=== PATIENT | female | born 1990 | race Two or more races ===

== ENCOUNTER 2017-02-06 18:05 | Inpatient (IN) | payer MEDICAID, OTHER ==
[~2017-02-06] VITALS: Ht 124.5 cm; Wt 70.0 kg
[2017-02-06 19:22] LABS: Albumin 2.3 g/dL (3.4-5.0); BUN/Creatinine Ratio 26.9; Bilirubin, Total 0.7 mg/dL (0.2-1.0); Calcium 7.9 mg/dL (8.5-10.1); Potassium 3.1 mmol/L (3.5-5.1); Total Protein 7.4 g/dL (6.4-8.2)
[2017-02-06 19:35] LABS: Basophils # (auto) 0 uL; Basophils % (auto) 0.2 % (0.0-2.0); Eosinophils # (auto) 0 uL; Eosinophils % (auto) 0.3 % (0.0-7.0); Hematocrit 22.5 % (36.0-46.0); Hemoglobin 7.8 g/dL (12.2-16.2); Lymphocytes # (auto) 0.7 uL; Lymphocytes % (auto) 7.6 % (10.0-50.0); Mean Corpuscular Hemoglobin 30.6 pg (28.0-32.0); Mean Corpuscular Hgb Conc. 34.5 g/dL (32.0-36.0); Mean Corpuscular Volume 88.7 fL (80.0-100.0); Mean Platelet Volume 7.7 fL (6.9-10.8); Monocytes # (auto) 0.1 uL; Monocytes % (auto) 1.2 % (0.0-12.0); Neutrophils # (auto) 8.2 uL; Neutrophils % (auto) 90.7 % (37.0-80.0); Nucleated Red Blood Cells % 0.2 %; Platelet Count (auto) 193 10^3/uL (140-450); White Blood Cell 9.1 10^3/uL (4.4-10.8)
[2017-02-06] MEDS ORDERED: LORazepam 2MG/ML-1ML VIAL IV ONE (19:45)
[2017-02-06 19:54] LABS: Red Cell Distribution Width 20.3 % (11.8-14.3)
[2017-02-06 21:54] LABS: Anisocytosis Moderate; Burr Cells MODERATE; Ovalocytes FEW; Platelet Estimate Adequate
[2017-02-06 22:50] LABS: Urine Bilirubin Negative (Negative); Urine Blood 2+ /uL (Negative); Urine Color Brown (Yellow); Urine Glucose Normal (Normal); Urine Ketone Negative (Negative); Urine Mucus FEW (None Seen); Urine Nitrite Negative (Negative); Urine RBC 1 /hpf (0 - 4); Urine Squamous Epithelial Cell FEW /hpf (<5); Urine Urobilinogen Normal (Negative)
[2017-02-06] MEDS ORDERED: cefTRIAXone 1GM/50ML D5W 50 ML IV ONE (23:00)
[2017-02-07] MEDS ORDERED: SODIUM CHLORIDE 0.9% 1,000 ML IV ONE ×2 (01:00→01:15)
[2017-02-07] MEDS ORDERED: SODIUM CHLORIDE 0.9% 1,000 ML IV SCH ×2 (02:19→05:58)
[2017-02-07] MEDS ORDERED: ACETAMINOPHEN 500 MG TAB PO PRN (02:30)
[2017-02-07] MEDS ORDERED: ZOLPIDEM TARTRATE 5 MG TAB PO PRN (02:30)
[2017-02-07] MEDS ORDERED: LACTULOSE 20Gm/30ML SOLN PO PRN ×2 (02:30→03:30)
[2017-02-07 02:53] LABS: Basophils # (auto) 0 uL; Basophils % (auto) 0.3 % (0.0-2.0); Eosinophils # (auto) 0.1 uL; Lymphocytes # (auto) 0.2 uL; Lymphocytes % (auto) 2.9 % (10.0-50.0); Mean Corpuscular Hemoglobin 29.9 pg (28.0-32.0); Mean Corpuscular Hgb Conc. 33.8 g/dL (32.0-36.0); Mean Corpuscular Volume 88.5 fL (80.0-100.0); Mean Platelet Volume 7.2 fL (6.9-10.8); Monocytes # (auto) 0.2 uL; Monocytes % (auto) 2.3 % (0.0-12.0); Neutrophils # (auto) 7.9 uL; Neutrophils % (auto) 93.5 % (37.0-80.0); Nucleated Red Blood Cells % 0.1 %; Platelet Count (auto) 178 10^3/uL (140-450); White Blood Cell 8.4 10^3/uL (4.4-10.8)
[2017-02-07 03:05] LABS: Red Cell Distribution Width 20.6 % (11.8-14.3)
[2017-02-07 03:08] LABS: Hemoglobin 6.7 g/dL (12.2-16.2)
[2017-02-07 03:35] LABS: BUN/Creatinine Ratio 25.6; Calcium 7.2 mg/dL (8.5-10.1); Potassium 3.2 mmol/L (3.5-5.1)
[2017-02-07 03:38] LABS: Bilirubin, Total 0.4 mg/dL (0.2-1.0); Total Protein 6.8 g/dL (6.4-8.2)
[2017-02-07] MEDS ORDERED: PIPERACILLIN-TAZOB 3.375GM 100 ML IV ONE (03:45)
[2017-02-07] MEDS ORDERED: POTASSIUM CHL 20MEQ/100ML 100 ML IV SCH (03:45)
[2017-02-07 03:57] LABS: Amylase 195 U/L (25-115)
[2017-02-07 04:02] LABS: Anisocytosis Slight; Burr Cells FEW; Platelet Estimate Adequate
[2017-02-07 04:03] LABS: Ovalocytes FEW; Tear Drop Cells FEW
[2017-02-07 05:00] VITALS: BP 127/70
[2017-02-07] MEDS ORDERED: ONDA4TAB5 PO (05:12)
[2017-02-07] MEDS ORDERED: METR500T14 PO (05:12)
[2017-02-07] MEDS ORDERED: FER300LQ PO (05:12)
[2017-02-07] MEDS ORDERED: HYDR-4663 PO (05:12)
[2017-02-07] MEDS ORDERED: CIPR500T20 PO (05:12)
[2017-02-07] MEDS ORDERED: FERR325T PO (05:13)
[2017-02-07] MEDS ORDERED: CLINDAMYCIN 600MG IV 50 ML IV SCH (06:00)
[2017-02-07] MEDS: PIPERACILLIN-TAZOB 3.375GM 100 ML IV SCH ×3 (06:51→17:51)
[2017-02-07] MEDS ORDERED: LORazepam 2MG/ML-1ML VIAL IV PRN (09:00)
[2017-02-07] MEDS ORDERED: cefTRIAXone 1GM/50ML D5W 50 ML IV SCH (09:00)
[2017-02-07 09:02] VITALS: BP 135/106
[2017-02-07] MEDS: LORazepam 0.5 MG TAB PO PRN ×2 (10:16→17:58)
[2017-02-07] MEDS: D5W/SOD CHL 0.45%/KCL 40MEQ 1,000 ML IV SCH ×2 (11:15→22:49)
[2017-02-07 12:06] LABS: Magnesium 2.2 mg/dL (1.6-2.6); Phosphorus 5.5 mg/dL (2.5-4.90)
[2017-02-07 12:14] LABS: B-Type Natriuretic Peptide 308.36 pg/mL (0-100)
[2017-02-07 12:15] LABS: Temperature: 23.5 C (20.0-25.0)
[2017-02-07 12:30] VITALS: BP 118/63
[2017-02-07] MEDS ORDERED: FLORASTOR (S. BOULARDII) 250 MG CAP PO ONE (13:45)
[2017-02-07] MEDS: metroNIDAZOLE 500 MG TAB PO SCH ×2 (16:03→22:47)
[2017-02-07] MEDS: ALBUMIN 25% 100 ML IV SCH ×2 (16:03→22:49)
[2017-02-07 17:23] VITALS: BP 118/50
[2017-02-07] MEDS: FERROUS SULFATE 325 MG TAB PO SCH (17:52)
[2017-02-07 20:00] VITALS: BP 104/59
[2017-02-07] MEDS: MORPHINE SULF INJ 2 MG/ML SYRINGE 1ML IV PRN (20:06)
[2017-02-07 21:41] VITALS: BP 104/59
[2017-02-07] MEDS: HYDROcodone-ACET 5/325MG TAB PO PRN (23:08)
[2017-02-08] VITALS (15 sets, daily range): BP systolic 92–130; BP diastolic 50–75
[2017-02-08] MEDS: PIPERACILLIN-TAZOB 3.375GM 100 ML IV SCH ×4 (01:02→18:27)
[2017-02-08] MEDS: LORazepam 0.5 MG TAB PO PRN (03:27)
[2017-02-08] MEDS: ALBUMIN 25% 100 ML IV SCH ×3 (06:59→21:45)
[2017-02-08] MEDS: metroNIDAZOLE 500 MG TAB PO SCH ×3 (06:59→21:45)
[2017-02-08 07:00] LABS: Basophils # (auto) 0 uL; Basophils % (auto) 0.1 % (0.0-2.0); Eosinophils # (auto) 0.1 uL; Eosinophils % (auto) 1.9 % (0.0-7.0); Hematocrit 22.2 % (36.0-46.0); Hemoglobin 7.6 g/dL (12.2-16.2); Lymphocytes % (auto) 17.3 % (10.0-50.0); Mean Corpuscular Hgb Conc. 34.1 g/dL (32.0-36.0); Mean Corpuscular Volume 88.1 fL (80.0-100.0); Mean Platelet Volume 7.2 fL (6.9-10.8); Monocytes # (auto) 0.2 uL; Monocytes % (auto) 4.3 % (0.0-12.0); Neutrophils # (auto) 4.4 uL; Neutrophils % (auto) 76.4 % (37.0-80.0); Nucleated Red Blood Cells % 0.3 %; Platelet Count (auto) 141 10^3/uL (140-450); Red Cell Distribution Width 18.2 % (11.8-14.3); White Blood Cell 5.7 10^3/uL (4.4-10.8)
[2017-02-08] MEDS: ALBUTEROL SULF 2.5 MG/0.5ML(0.5%) NEB SOLN NEB SCH ×3 (07:09→18:38)
[2017-02-08] MEDS: D5W/SOD CHL 0.45%/KCL 40MEQ 1,000 ML IV SCH ×2 (07:15→17:15)
[2017-02-08 07:21] LABS: BUN/Creatinine Ratio 21.5; Calcium 7.2 mg/dL (8.5-10.1); Potassium 4.2 mmol/L (3.5-5.1)
[2017-02-08] MEDS: FERROUS SULFATE 325 MG TAB PO SCH ×2 (08:00→18:27)
[2017-02-08] MEDS: FLORASTOR (S. BOULARDII) 250 MG CAP PO SCH (10:55)
[2017-02-08] MEDS: HYDROcodone-ACET 5/325MG TAB PO PRN (11:05)
[2017-02-08 14:46] LABS: Anisocytosis Slight; Burr Cells FEW; Ovalocytes FEW; Platelet Estimate Adequate
[2017-02-08] MEDS: MORPHINE SULF INJ 2 MG/ML SYRINGE 1ML IV PRN (22:02)
[2017-02-09] VITALS (14 sets, daily range): BP systolic 108–141; BP diastolic 57–91
[2017-02-09] MEDS: PIPERACILLIN-TAZOB 3.375GM 100 ML IV SCH ×4 (00:04→18:30)
[2017-02-09] MEDS: MORPHINE SULF INJ 2 MG/ML SYRINGE 1ML IV PRN ×4 (04:46→23:23)
[2017-02-09] MEDS: ONDANSETRON HCL 4 MG/2 ML VIAL IV PRN ×4 (04:55→21:22)
[2017-02-09] MEDS: ALBUMIN 25% 100 ML IV SCH (05:44)
[2017-02-09 05:47] LABS: Hematocrit 20.3 % (36.0-46.0)
[2017-02-09] MEDS: ALBUTEROL SULF 2.5 MG/0.5ML(0.5%) NEB SOLN NEB SCH ×4 (05:52→18:07)
[2017-02-09 06:16] LABS: Potassium 4.8 mmol/L (3.5-5.1)
[2017-02-09] MEDS: metroNIDAZOLE 500 MG TAB PO SCH ×3 (06:17→22:53)
[2017-02-09] MEDS: D5W/SOD CHL 0.45%/KCL 40MEQ 1,000 ML IV SCH (06:19)
[2017-02-09 06:23] LABS: BUN/Creatinine Ratio 17.5; Calcium 7.7 mg/dL (8.5-10.1)
[2017-02-09] MEDS: FERROUS SULFATE 325 MG TAB PO SCH ×2 (08:00→18:30)
[2017-02-09] MEDS: FLORASTOR (S. BOULARDII) 250 MG CAP PO SCH (10:29)
[2017-02-09] MEDS ORDERED: GOLYTELY 4L KIT PO ONE (12:00)
[2017-02-09 12:07] LABS: Sjogren's Anti-SS-A Antibody >8.0 AI (0.0-0.9)
[2017-02-09] MEDS ORDERED: SODIUM BICARBONATE 50ML VIAL 50 ML in SOD CHL 0.45% 1,000 ML IV SCH (12:45)
[2017-02-09] MEDS ORDERED: ASCORBIC ACID 500 MG TAB PO ONE (13:45)
[2017-02-09] MEDS ORDERED: MULTIPLE VITAMINS W/ MINERALS TAB PO ONE (13:45)
[2017-02-09] MEDS: ASCORBIC ACID 500 MG TAB PO SCH (22:52)
[2017-02-10] VITALS (69 sets, daily range): BP systolic 94–138; BP diastolic 45–85
[2017-02-10] MEDS: PIPERACILLIN-TAZOB 3.375GM 100 ML IV SCH ×4 (00:38→18:41)
[2017-02-10] MEDS: metroNIDAZOLE 500 MG TAB PO SCH (05:41)
[2017-02-10] MEDS: ALBUTEROL SULF 2.5 MG/0.5ML(0.5%) NEB SOLN NEB SCH ×4 (06:17→18:13)
[2017-02-10 06:28] LABS: Hematocrit 33.5 % (36.0-46.0); Hemoglobin 10.9 g/dL (12.2-16.2); Mean Corpuscular Hemoglobin 29.6 pg (28.0-32.0); Mean Corpuscular Hgb Conc. 32.6 g/dL (32.0-36.0); Mean Corpuscular Volume 90.9 fL (80.0-100.0); Mean Platelet Volume 7.1 fL (6.9-10.8); Platelet Count (auto) 154 10^3/uL (140-450); Red Cell Distribution Width 19.2 % (11.8-14.3)
[2017-02-10 06:32] LABS: Metamyelocytes % 0; Myelocytes % 0; Promyelocytes % 0; Reactive Lymphocytes 0
[2017-02-10 06:49] LABS: BUN/Creatinine Ratio 16.1; Calcium 7.4 mg/dL (8.5-10.1); Potassium 5.3 mmol/L (3.5-5.1)
[2017-02-10] MEDS ORDERED: ETOMIDATE (2MG/ML) 20ML VIAL IV ONE (07:05)
[2017-02-10] MEDS ORDERED: MIDAZOLAM HCL 1MG/1ML-2 ML VIAL ONE (07:05)
[2017-02-10] MEDS ORDERED: ROCURONIUM 10MG/ML 10ML VIAL IV ONE (07:05)
[2017-02-10] MEDS ORDERED: SUCCINYLCHOLINE CHLORIDE 20 MG/ML 10ML VIAL IV ONE (07:06)
[2017-02-10] MEDS ORDERED: MIDAZOLAM DRIP 50 mg/50mL 50 ML IV ONE (07:40)
[2017-02-10 08:00] LABS: Anisocytosis Slight; Burr Cells FEW; Ovalocytes FEW; Platelet Estimate Adequate
[2017-02-10] MEDS: FERROUS SULFATE 325 MG TAB PO SCH ×2 (08:00→18:41)
[2017-02-10] MEDS ORDERED: VANCOMYCIN PER PHARMACY 0 MG IV SCH (08:45)
[2017-02-10] MEDS ORDERED: metroNIDAZOLE 500MG/100ML 100 ML IV ONE (08:45)
[2017-02-10] MEDS: VANCOMYCIN HCL 125MG/5ML ORAL SOL PO SCH ×3 (08:45→21:03)
[2017-02-10 08:48] LABS: Base Excess -13.3 mmol/L (-2.0-2.0); Blood 02Sat 98.6 % (96-100); Blood COHb 1.5 % (0.5-1.5); Blood MetHb 0.9 % (0.0-1.5); HCO3 17.2 mmol/L (22-26.0); HHb 1.4 % (0.0-5.0); MODE VENT - A/C; O2Hb 96.2 % (94.0-97.0); PIP 26; PO2 213.7 mmHg (80.0-100.0); PO2(T) 213.7 mmHg (80.0-100.0); Sample Type Arterial; Spont Vt 256; pH 7.054 (7.350-7.450)
[2017-02-10] MEDS: MIDAZOLAM DRIP 50 mg/50mL 50 ML IV SCH (09:10)
[2017-02-10] MEDS: SODIUM CHLORIDE 0.9% 1,000 ML IV SCH ×2 (09:24→17:00)
[2017-02-10] MEDS: PANTOPRAZOLE 40 MG/10 ML VIAL IV SCH ×2 (09:24→21:31)
[2017-02-10] MEDS: ASCORBIC ACID 500 MG TAB PO SCH ×2 (09:25→21:31)
[2017-02-10] MEDS: FLORASTOR (S. BOULARDII) 250 MG CAP PO SCH (09:25)
[2017-02-10] MEDS: MULTIPLE VITAMINS W/ MINERALS TAB PO SCH (09:25)
[2017-02-10 10:23] LABS: INR 1.59 (0.9-1.15); Partial Thromboplastin Time 46.2 sec (22.64-33.71); Prothrombin Time 17.4 sec (9.37-12.3)
[2017-02-10] MEDS: VANCOMYCIN 1GM/250ML D5W 250 ML IV SCH (10:25)
[2017-02-10] MEDS ORDERED: BUMETANIDE (0.25MG/ML) 4 ML VIAL IV ONE (11:45)
[2017-02-10] MEDS ORDERED: VANCOMYCIN HCL 125MG/5ML ORAL SOL PO SCH (12:00)
[2017-02-10] MEDS ORDERED: BUMETANIDE (0.25 MG/ML) INJ 10ML IV ONE (12:00)
[2017-02-10 12:15] LABS: Urine Bilirubin Negative (Negative); Urine Blood 3+ /uL (Negative); Urine Color Brown (Yellow); Urine Glucose Normal (Normal); Urine Ketone Negative (Negative); Urine Nitrite Negative (Negative); Urine RBC 10 /hpf (0 - 4); Urine Squamous Epithelial Cell FEW /hpf (<5); Urine Urobilinogen Normal (Negative)
[2017-02-10 15:24] LABS: Base Excess -10.2 mmol/L (-2.0-2.0); Blood COHb 1.2 % (0.5-1.5); Blood MetHb 0.7 % (0.0-1.5); HCO3 17.7 mmol/L (22-26.0); HHb 2.9 % (0.0-5.0); MODE VENT - A/C; O2Hb 95.2 % (94.0-97.0); PCO2 47.5 mmHg (35.0-45.0); PCO2(T) 47.5 mmHg (35.0-45.0); PIP 26; PO2 101.3 mmHg (80.0-100.0); PO2(T) 101.3 mmHg (80.0-100.0); Sample Type Arterial; Spont Vt 358
[2017-02-10] MEDS ORDERED: LIDOCAINE 1% HCL (LOCAL ANESTH.) INJ 20ML MDV IV ONE (16:45)
[2017-02-10] MEDS ORDERED: LIDOCAINE HCL 1 % PF INJ 2ML AMP IJ ONE (16:45)
[2017-02-10] MEDS: metroNIDAZOLE 500MG/100ML 100 ML IV SCH ×2 (17:15→21:31)
[2017-02-10] MEDS: diphenhdrAMINE HCL 50 MG/1 ML VL IV PRN (18:52)
[2017-02-11] VITALS (101 sets, daily range): BP systolic 93–135; BP diastolic 43–109
[2017-02-11] MEDS: PIPERACILLIN-TAZOB 3.375GM 100 ML IV SCH ×4 (00:14→17:34)
[2017-02-11] MEDS ORDERED: SODIUM CHLORIDE 0.9% 500 ML IV ONE (00:30)
[2017-02-11] MEDS: ALBUTEROL SULF 2.5 MG/0.5ML(0.5%) NEB SOLN NEB SCH ×4 (00:46→19:17)
[2017-02-11] MEDS: SODIUM CHLORIDE 0.9% 1,000 ML IV SCH ×2 (01:00→09:24)
[2017-02-11 01:06] LABS: Hematocrit 32.6 % (36.0-46.0); Mean Corpuscular Hemoglobin 30.1 pg (28.0-32.0); Mean Corpuscular Hgb Conc. 33.7 g/dL (32.0-36.0); Mean Corpuscular Volume 89.4 fL (80.0-100.0); Mean Platelet Volume 6.8 fL (6.9-10.8); Platelet Count (auto) 130 10^3/uL (140-450); Red Cell Distribution Width 19.6 % (11.8-14.3); White Blood Cell 12.2 10^3/uL (4.4-10.8)
[2017-02-11 01:23] LABS: Myelocytes % 0; Promyelocytes % 0; Reactive Lymphocytes 0
[2017-02-11 01:25] LABS: Albumin 2.5 g/dL (3.4-5.0); BUN/Creatinine Ratio 16.3; Magnesium 1.9 mg/dL (1.6-2.6); Potassium 3.8 mmol/L (3.5-5.1)
[2017-02-11 01:27] LABS: Bilirubin, Total 1.1 mg/dL (0.2-1.0); Total Protein 5.9 g/dL (6.4-8.2)
[2017-02-11] MEDS: MIDAZOLAM DRIP 50 mg/50mL 50 ML IV SCH (02:08)
[2017-02-11 02:34] LABS: Anisocytosis Slight; Metamyelocytes % 1; Ovalocytes FEW; Platelet Estimate Decreased; Polychromasia Slight
[2017-02-11] MEDS: VANCOMYCIN HCL 125MG/5ML ORAL SOL PO SCH ×4 (03:09→20:43)
[2017-02-11] MEDS: diphenhdrAMINE HCL 50 MG/1 ML VL IV PRN ×2 (03:36→13:33)
[2017-02-11] MEDS ORDERED: methylPREDNISolone SOD SUCC 125 MG/2 ML VL IV ONE (05:30)
[2017-02-11] MEDS ORDERED: methylPREDNISolone SOD SUCC 125 MG/2 ML VL ONE (05:40)
[2017-02-11] MEDS: metroNIDAZOLE 500MG/100ML 100 ML IV SCH ×3 (06:03→22:00)
[2017-02-11 07:23] LABS: Body Fluid Polymorphonuclear 4 %
[2017-02-11] MEDS ORDERED: EPINEPHrine HCL 1 MG/10 ML SYRG ONE (07:48)
[2017-02-11] MEDS ORDERED: FLUMAZENIL 0.1 MG/ML INJ 10ML MDV IV ONE (07:48)
[2017-02-11] MEDS ORDERED: SODIUM CHLORIDE LOCK 0 ML ONE (07:48)
[2017-02-11] MEDS ORDERED: NALOXONE HCL 0.4 MG/ML VIAL ONE (07:48)
[2017-02-11] MEDS ORDERED: fentaNYL CITRATE 100 MCG/2 ML VL ONE (07:49)
[2017-02-11] MEDS ORDERED: diphenhdrAMINE HCL 50 MG/1 ML VL ONE (07:49)
[2017-02-11] MEDS ORDERED: MIDAZOLAM HCL 5 MG/ML-1ML VIAL ONE (07:49)
[2017-02-11] MEDS: FERROUS SULFATE 325 MG TAB PO SCH ×2 (09:23→17:34)
[2017-02-11] MEDS: PANTOPRAZOLE 40 MG/10 ML VIAL IV SCH ×2 (09:23→22:00)
[2017-02-11] MEDS: FLORASTOR (S. BOULARDII) 250 MG CAP PO SCH (09:23)
[2017-02-11] MEDS: MULTIPLE VITAMINS W/ MINERALS TAB PO SCH (09:23)
[2017-02-11] MEDS: ASCORBIC ACID 500 MG TAB PO SCH ×2 (09:23→22:00)
[2017-02-11] MEDS: BUMETANIDE (0.25 MG/ML) INJ 10ML IV SCH (09:24)
[2017-02-11] MEDS: VANCOMYCIN 1GM/250ML D5W 250 ML IV SCH (09:24)
[2017-02-11 10:03] LABS: Allen Test Yes; Base Excess -15.2 mmol/L (-2.0-2.0); Blood 02Sat 94.1 % (96-100); Blood COHb 1.7 % (0.5-1.5); Blood MetHb 0.7 % (0.0-1.5); HCO3 12.9 mmol/L (22-26.0); HHb 5.8 % (0.0-5.0); MODE VENT - A/C; O2Hb 91.8 % (94.0-97.0); PCO2 38.2 mmHg (35.0-45.0); PCO2(T) 38.2 mmHg (35.0-45.0); Sample Type Arterial; pH 7.146 (7.350-7.450)
[2017-02-11] MEDS ORDERED: SODIUM BICARBONATE 50ML VIAL 50 ML in SOD CHL 0.45% 1,000 ML IV SCH (11:15)
[2017-02-11 14:01] LABS: Allen Test Yes; Base Excess -11.2 mmol/L (-2.0-2.0); Blood 02Sat 92.6 % (96-100); Blood MetHb 0.5 % (0.0-1.5); HCO3 16.2 mmol/L (22-26.0); HHb 7.2 % (0.0-5.0); MODE VENT - A/C; O2Hb 90.3 % (94.0-97.0); PCO2 41.7 mmHg (35.0-45.0); PCO2(T) 41.7 mmHg (35.0-45.0); PO2 68.5 mmHg (80.0-100.0); PO2(T) 68.5 mmHg (80.0-100.0); Sample Type Arterial; pH 7.206 (7.350-7.450)
[2017-02-12] VITALS (65 sets, daily range): BP systolic 108–168; BP diastolic 61–98
[2017-02-12] MEDS: PIPERACILLIN-TAZOB 3.375GM 100 ML IV SCH ×4 (00:23→17:48)
[2017-02-12] MEDS: ALBUTEROL SULF 2.5 MG/0.5ML(0.5%) NEB SOLN NEB SCH ×4 (00:47→19:06)
[2017-02-12] MEDS: VANCOMYCIN HCL 125MG/5ML ORAL SOL PO SCH ×4 (02:45→21:37)
[2017-02-12 04:42] LABS: Hematocrit 28.5 % (36.0-46.0); Hemoglobin 9.8 g/dL (12.2-16.2); Mean Corpuscular Hemoglobin 30.5 pg (28.0-32.0); Mean Corpuscular Hgb Conc. 34.5 g/dL (32.0-36.0); Mean Corpuscular Volume 88.3 fL (80.0-100.0); Mean Platelet Volume 7.3 fL (6.9-10.8); Platelet Count (auto) 116 10^3/uL (140-450); Red Cell Distribution Width 19.8 % (11.8-14.3); White Blood Cell 10.4 10^3/uL (4.4-10.8)
[2017-02-12 04:53] LABS: INR 1.62 (0.9-1.15); Prothrombin Time 17.7 sec (9.37-12.3)
[2017-02-12 05:01] LABS: Albumin 2.5 g/dL (3.4-5.0); BUN/Creatinine Ratio 15.1; Magnesium 1.9 mg/dL (1.6-2.6); Potassium 3.9 mmol/L (3.5-5.1)
[2017-02-12 05:04] LABS: Bilirubin, Total 0.8 mg/dL (0.2-1.0); Total Protein 6.2 g/dL (6.4-8.2)
[2017-02-12 05:33] LABS: Metamyelocytes % 0; Myelocytes % 0; Promyelocytes % 0; Reactive Lymphocytes 0
[2017-02-12] MEDS: metroNIDAZOLE 500MG/100ML 100 ML IV SCH ×3 (06:13→21:37)
[2017-02-12] MEDS: FERROUS SULFATE 325 MG TAB PO SCH ×2 (08:00→17:16)
[2017-02-12 08:07] LABS: Allen Test Yes; Base Excess -10.2 mmol/L (-2.0-2.0); Blood 02Sat 94.2 % (96-100); Blood MetHb 0.5 % (0.0-1.5); HCO3 16.2 mmol/L (22-26.0); HHb 5.7 % (0.0-5.0); MODE VENT - A/C; O2Hb 92.8 % (94.0-97.0); PCO2 37.9 mmHg (35.0-45.0); PCO2(T) 37.9 mmHg (35.0-45.0); Sample Type Arterial; pH 7.249 (7.350-7.450)
[2017-02-12 08:29] LABS: Anisocytosis Slight; Burr Cells FEW; Ovalocytes FEW; Platelet Estimate Decreased
[2017-02-12] MEDS: FLORASTOR (S. BOULARDII) 250 MG CAP PO SCH (10:13)
[2017-02-12] MEDS: MULTIPLE VITAMINS W/ MINERALS TAB PO SCH (10:13)
[2017-02-12] MEDS: ASCORBIC ACID 500 MG TAB PO SCH ×2 (10:14→21:37)
[2017-02-12] MEDS: BUMETANIDE (0.25 MG/ML) INJ 10ML IV SCH (10:14)
[2017-02-12] MEDS: PANTOPRAZOLE 40 MG/10 ML VIAL IV SCH ×2 (10:14→21:37)
[2017-02-12] MEDS: diphenhdrAMINE HCL 50 MG/1 ML VL IV PRN (10:15)
[2017-02-12] MEDS: SODIUM BICARBONATE 50ML VIAL 50 ML in SOD CHL 0.45% 1,000 ML IV SCH ×2 (12:05→21:37)
[2017-02-12] MEDS: MIDAZOLAM DRIP 50 mg/50mL 50 ML IV SCH (13:50)
[2017-02-13] VITALS (99 sets, daily range): BP systolic 130–152; BP diastolic 64–101
[2017-02-13] MEDS: ALBUTEROL SULF 2.5 MG/0.5ML(0.5%) NEB SOLN NEB SCH ×4 (00:27→18:29)
[2017-02-13] MEDS: VANCOMYCIN HCL 125MG/5ML ORAL SOL PO SCH ×4 (03:30→20:45)
[2017-02-13] MEDS: diphenhdrAMINE HCL 50 MG/1 ML VL IV PRN (03:30)
[2017-02-13 04:07] LABS: Basophils # (auto) 0 uL; Basophils % (auto) 0.2 % (0.0-2.0); Eosinophils # (auto) 0.1 uL; Eosinophils % (auto) 0.7 % (0.0-7.0); Hematocrit 27.3 % (36.0-46.0); Hemoglobin 9.4 g/dL (12.2-16.2); Lymphocytes # (auto) 0.4 uL; Lymphocytes % (auto) 3.1 % (10.0-50.0); Mean Corpuscular Hemoglobin 30.4 pg (28.0-32.0); Mean Corpuscular Hgb Conc. 34.6 g/dL (32.0-36.0); Mean Corpuscular Volume 87.7 fL (80.0-100.0); Mean Platelet Volume 7.2 fL (6.9-10.8); Monocytes # (auto) 2.1 uL; Monocytes % (auto) 15.4 % (0.0-12.0); Neutrophils # (auto) 10.8 uL; Neutrophils % (auto) 80.6 % (37.0-80.0); Nucleated Red Blood Cells % 0.5 %; Platelet Count (auto) 124 10^3/uL (140-450); White Blood Cell 13.4 10^3/uL (4.4-10.8)
[2017-02-13 04:13] LABS: INR 1.77 (0.9-1.15); Prothrombin Time 19.4 sec (9.37-12.3)
[2017-02-13 04:29] LABS: Albumin 2.3 g/dL (3.4-5.0); BUN/Creatinine Ratio 15.7; Calcium 7.2 mg/dL (8.5-10.1); Magnesium 1.8 mg/dL (1.6-2.6); Potassium 3.4 mmol/L (3.5-5.1)
[2017-02-13 04:46] LABS: Anisocytosis Slight; Ovalocytes FEW; Platelet Estimate Decreased
[2017-02-13 04:55] LABS: Bilirubin, Total 0.7 mg/dL (0.2-1.0); Total Protein 5.9 g/dL (6.4-8.2)
[2017-02-13] MEDS: metroNIDAZOLE 500MG/100ML 100 ML IV SCH ×3 (05:00→22:00)
[2017-02-13] MEDS: MIDAZOLAM DRIP 50 mg/50mL 50 ML IV SCH (05:40)
[2017-02-13] MEDS: PIPERACILLIN-TAZOB 3.375GM 100 ML IV SCH ×4 (06:03→18:00)
[2017-02-13] MEDS: SODIUM BICARBONATE 50ML VIAL 50 ML in SOD CHL 0.45% 1,000 ML IV SCH ×2 (06:46→18:45)
[2017-02-13 07:38] LABS: Allen Test Yes; Blood COHb 0.8 % (0.5-1.5); Blood MetHb 0.6 % (0.0-1.5); HCO3 16.5 mmol/L (22-26.0); HHb 4.9 % (0.0-5.0); MODE VENT - A/C; O2Hb 93.7 % (94.0-97.0); PCO2 33.9 mmHg (35.0-45.0); PCO2(T) 33.9 mmHg (35.0-45.0); PO2 84.3 mmHg (80.0-100.0); PO2(T) 84.3 mmHg (80.0-100.0); Sample Type Arterial; pH 7.305 (7.350-7.450)
[2017-02-13] MEDS: FERROUS SULFATE 325 MG TAB PO SCH ×2 (10:03→16:33)
[2017-02-13] MEDS: FLORASTOR (S. BOULARDII) 250 MG CAP PO SCH (10:03)
[2017-02-13] MEDS: MULTIPLE VITAMINS W/ MINERALS TAB PO SCH (10:03)
[2017-02-13] MEDS: ASCORBIC ACID 500 MG TAB PO SCH ×2 (10:03→22:00)
[2017-02-13] MEDS: PANTOPRAZOLE 40 MG/10 ML VIAL IV SCH ×2 (10:04→22:00)
[2017-02-13] MEDS: BUMETANIDE (0.25 MG/ML) INJ 10ML IV SCH (10:04)
[2017-02-13] MEDS ORDERED: FUROSEMIDE 40 MG/4 ML VIAL IV ONE (15:15)
[2017-02-13] MEDS ORDERED: Fibersource Hn 1 Liter GT SCH (17:15)
[2017-02-14] VITALS (81 sets, daily range): BP systolic 99–149; BP diastolic 55–90
[2017-02-14] MEDS: ALBUTEROL SULF 2.5 MG/0.5ML(0.5%) NEB SOLN NEB SCH ×4 (00:22→19:40)
[2017-02-14] MEDS: VANCOMYCIN HCL 125MG/5ML ORAL SOL PO SCH ×4 (02:45→20:45)
[2017-02-14 05:35] LABS: Basophils # (auto) 0 uL; Basophils % (auto) 0.1 % (0.0-2.0); Eosinophils # (auto) 0.7 uL; Hemoglobin 11.2 g/dL (12.2-16.2); Lymphocytes # (auto) 0.4 uL; Lymphocytes % (auto) 2.9 % (10.0-50.0); Mean Corpuscular Hemoglobin 29.5 pg (28.0-32.0); Mean Platelet Volume 7.3 fL (6.9-10.8); Monocytes # (auto) 1.8 uL; Monocytes % (auto) 12.9 % (0.0-12.0); Neutrophils % (auto) 79.1 % (37.0-80.0); Nucleated Red Blood Cells % 0.3 %; Platelet Count (auto) 113 10^3/uL (140-450); White Blood Cell 13.9 10^3/uL (4.4-10.8)
[2017-02-14 05:36] LABS: Red Cell Distribution Width 20.1 % (11.8-14.3)
[2017-02-14 05:45] LABS: INR 1.89 (0.9-1.15); Prothrombin Time 20.7 sec (9.37-12.3)
[2017-02-14 05:50] LABS: Albumin 1.9 g/dL (3.4-5.0); BUN/Creatinine Ratio 15.3; Calcium 6.5 mg/dL (8.5-10.1); Magnesium 1.8 mg/dL (1.6-2.6); Potassium 3.1 mmol/L (3.5-5.1)
[2017-02-14 05:53] LABS: Bilirubin, Total 0.6 mg/dL (0.2-1.0); Total Protein 5.3 g/dL (6.4-8.2)
[2017-02-14] MEDS: metroNIDAZOLE 500MG/100ML 100 ML IV SCH ×3 (06:17→22:00)
[2017-02-14] MEDS: PIPERACILLIN-TAZOB 3.375GM 100 ML IV SCH ×4 (06:40→18:02)
[2017-02-14 07:27] LABS: Platelet Estimate Decreased
[2017-02-14 07:28] LABS: Anisocytosis Slight
[2017-02-14] MEDS: MIDAZOLAM DRIP 50 mg/50mL 50 ML IV SCH (07:37)
[2017-02-14] MEDS ORDERED: MAGNESIUM SULFATE 1GM/100ML 100 ML IV ONE (08:45)
[2017-02-14] MEDS ORDERED: POTASSIUM CHL 20MEQ/100ML 100 ML IV ONE (08:45)
[2017-02-14 08:50] LABS: Allen Test Yes; Base Excess -8.9 mmol/L (-2.0-2.0); Blood 02Sat 95.6 % (96-100); Blood COHb 1.3 % (0.5-1.5); Blood MetHb 0.4 % (0.0-1.5); HCO3 17.1 mmol/L (22-26.0); HHb 4.3 % (0.0-5.0); MODE VENT - A/C; PCO2 37.3 mmHg (35.0-45.0); PCO2(T) 37.3 mmHg (35.0-45.0); PO2 89.8 mmHg (80.0-100.0); PO2(T) 89.8 mmHg (80.0-100.0); Sample Type Arterial
[2017-02-14] MEDS: FERROUS SULFATE 325 MG TAB PO SCH ×2 (09:04→18:02)
[2017-02-14] MEDS: ASCORBIC ACID 500 MG TAB PO SCH ×2 (10:00→22:00)
[2017-02-14] MEDS: MULTIPLE VITAMINS W/ MINERALS TAB PO SCH (10:45)
[2017-02-14] MEDS: PANTOPRAZOLE 40 MG/10 ML VIAL IV SCH ×2 (10:45→22:00)
[2017-02-14] MEDS: FLORASTOR (S. BOULARDII) 250 MG CAP PO SCH (10:45)
[2017-02-14] MEDS: SODIUM BICARBONATE 50ML VIAL 50 ML in SOD CHL 0.45% 1,000 ML IV SCH ×2 (10:46→15:45)
[2017-02-14 19:20] LABS: Allen Test Yes; Base Excess -9.5 mmol/L (-2.0-2.0); Blood 02Sat 99.1 % (96-100); Blood COHb 1.1 % (0.5-1.5); Blood MetHb 0.5 % (0.0-1.5); HCO3 16.6 mmol/L (22-26.0); HHb 0.9 % (0.0-5.0); MODE VENT - A/C; O2Hb 97.5 % (94.0-97.0); PCO2 37.1 mmHg (35.0-45.0); PCO2(T) 37.1 mmHg (35.0-45.0); PO2 349.4 mmHg (80.0-100.0); PO2(T) 349.4 mmHg (80.0-100.0); Sample Type Arterial; pH 7.269 (7.350-7.450)
[2017-02-14] MEDS ORDERED: SODIUM BICARBONATE 50ML VIAL 100 ML in D5W 5% 1,000 ML IV SCH (20:00)
[2017-02-14] MEDS: LORazepam 2MG/ML-1ML VIAL IV PRN (22:15)
[2017-02-14] MEDS ORDERED: METOPROLOL TARTRATE 1MG/1ML-5ML VIAL IV ONE ×2 (22:44→22:45)
[2017-02-15] VITALS (53 sets, daily range): BP systolic 41–140; BP diastolic 27–90
[2017-02-15] MEDS ORDERED: NOREPINEPHRINE BITARTRATE 250 ML IV ONE (00:18)
[2017-02-15] MEDS ORDERED: ALBUMIN 5% 250 ML IV ONE ×2 (00:20→02:00)
[2017-02-15] MEDS ORDERED: NOREPINEPHRINE BITARTRATE 250 ML IV SCH (01:49)
[2017-02-15] MEDS: VANCOMYCIN HCL 125MG/5ML ORAL SOL PO SCH ×2 (02:45→08:48)
[2017-02-15] MEDS: metroNIDAZOLE 500MG/100ML 100 ML IV SCH (05:00)
[2017-02-15] MEDS: PIPERACILLIN-TAZOB 3.375GM 100 ML IV SCH ×2 (06:43)
[2017-02-15] MEDS: ALBUTEROL SULF 2.5 MG/0.5ML(0.5%) NEB SOLN NEB SCH (07:03)
[2017-02-15 07:42] LABS: Allen Test Yes; Base Excess -6.5 mmol/L (-2.0-2.0); Blood 02Sat 95.5 % (96-100); Blood COHb 0.8 % (0.5-1.5); Blood MetHb 0.4 % (0.0-1.5); HCO3 16.3 mmol/L (22-26.0); HHb 4.4 % (0.0-5.0); MODE VENT - A/C; O2Hb 94.4 % (94.0-97.0); PCO2 25.1 mmHg (35.0-45.0); PCO2(T) 25.1 mmHg (35.0-45.0); PO2 82.1 mmHg (80.0-100.0); PO2(T) 82.1 mmHg (80.0-100.0); Sample Type Arterial
[2017-02-15] MEDS: FERROUS SULFATE 325 MG TAB PO SCH (08:48)
[2017-02-15 10:54] LABS: Albumin 1.5 g/dL (3.4-5.0); BUN/Creatinine Ratio 14.1; Magnesium 1.8 mg/dL (1.6-2.6)
[2017-02-15 10:56] LABS: Bilirubin, Total 0.5 mg/dL (0.2-1.0); Total Protein 3.9 g/dL (6.4-8.2)
[2017-02-15 11:06] LABS: INR 2.57 (0.9-1.15); Prothrombin Time 28.3 sec (9.37-12.3)
[2017-02-15 11:09] LABS: Calcium 5.9 mg/dL (8.5-10.1)
[2017-02-15 11:11] LABS: Basophils # (auto) 0 uL; Basophils % (auto) 0.4 % (0.0-2.0); Eosinophils # (auto) 0.4 uL; Eosinophils % (auto) 5.1 % (0.0-7.0); Hematocrit 28.1 % (36.0-46.0); Hemoglobin 9.7 g/dL (12.2-16.2); Lymphocytes # (auto) 0.5 uL; Lymphocytes % (auto) 6.8 % (10.0-50.0); Mean Corpuscular Hgb Conc. 34.5 g/dL (32.0-36.0); Mean Platelet Volume 8.5 fL (6.9-10.8); Monocytes # (auto) 0.8 uL; Monocytes % (auto) 10.6 % (0.0-12.0); Neutrophils # (auto) 5.9 uL; Neutrophils % (auto) 77.1 % (37.0-80.0); Nucleated Red Blood Cells % 0.6 %; Platelet Count (auto) 63 10^3/uL (140-450); Red Cell Distribution Width 19.5 % (11.8-14.3); White Blood Cell 7.6 10^3/uL (4.4-10.8)
[2017-02-15] MEDS ORDERED: MORPHINE SULF INJ 2 MG/ML SYRINGE 1ML IV PRN (11:15)
[2017-02-15] MEDS ORDERED: LORazepam 2MG/ML-1ML VIAL IV PRN (11:15)
[2017-02-15] MEDS: LORazepam 2MG/ML-1ML VIAL IV PRN (11:33)
[2017-02-15 15:51] LABS: Anisocytosis Slight; Platelet Estimate Decreased
[2017-02-15] MEDS ORDERED: SODIUM BICARBONATE 50ML VIAL 100 ML in D5W 5% 1,000 ML IV SCH (20:00)
== END 2017-02-15 15:35 | disposition expired | DRG 720 ==
LOC: ER 18:05 → OVERFLOW 18:06 → WEST WING 02-07 04:22 → ICU WEST 02-10 07:46
PROVIDERS: ADMIT Nurse Practitioner Family; ATTEND Internal Medicine
PROC: 30233N1 Transfusion of Nonautologous Red Blood Cells into Peripheral Vein, Percutaneous Approach (ICD-10-PCS; 2017-02-08)
PROC: 02HV33Z Insertion of Infusion Device into Superior Vena Cava, Percutaneous Approach (ICD-10-PCS; 2017-02-09)
PROC: 5A1955Z Respiratory Ventilation, Greater than 96 Consecutive Hours (ICD-10-PCS; principal; 2017-02-10)
PROC: 0BH13EZ Insertion of Endotracheal Airway into Trachea, Percutaneous Approach (ICD-10-PCS; 2017-02-10)
PROC: 0W993ZZ Drainage of Right Pleural Cavity, Percutaneous Approach (ICD-10-PCS; 2017-02-10)
PROC: 0DJ08ZZ Inspection of Upper Intestinal Tract, Via Natural or Artificial Opening Endoscopic (ICD-10-PCS; 2017-02-11)
DX: A41.9 Sepsis, unspecified organism (principal); J96.01 Acute respiratory failure with hypoxia; G93.6 Cerebral edema; G93.5 Compression of brain; I61.9 Nontraumatic intracerebral hemorrhage, unspecified; G93.41 Metabolic encephalopathy; N17.0 Acute kidney failure with tubular necrosis; J91.8 Pleural effusion in other conditions classified elsewhere; J69.0 Pneumonitis due to inhalation of food and vomit; A04.7 Enterocolitis due to Clostridium difficile; K85.90 Acute pancreatitis without necrosis or infection, unspecified; E86.0 Dehydration; K92.2 Gastrointestinal hemorrhage, unspecified; G80.9 Cerebral palsy, unspecified; E87.6 Hypokalemia; R79.89 Other specified abnormal findings of blood chemistry; Z51.5 Encounter for palliative care; D63.8 Anemia in other chronic diseases classified elsewhere; E87.8 Other disorders of electrolyte and fluid balance, not elsewhere classified; F41.9 Anxiety disorder, unspecified; Z66 Do not resuscitate; K59.00 Constipation, unspecified; G47.00 Insomnia, unspecified; Z71.89 Other specified counseling
CPT/HCPCS: 32555; 36415; 36600; 43235; 70450; 71010; 74176; 76604; 76775; 76942; 80048; 80053; 81001; 82150; 82270; 82570; 82805; 83540; 83550; 83605; 83615; 83690; 83735; 83880; 83986; 84100; 84156; 84300; 84702; 85007; 85014; 85018; 85025; 85027; 85379; 85610; 85730; 86038; 86160; 86803; 86850; 86860; 86870; 86880; 86900; 86901; 86906; 86920; 86922; 86971; 87040; 87070; 87081; 87086; 87205; 87340; 87493; 89051; 93306; 94002; 94003; 94640; 94761; 95819; 96361; 96365; 96375; C9113; J0330; J0696; J2001; J2250; J2405; J2543; J3480; J3490